=== PATIENT | female | born 2000 | race Caucasian/White ===

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

== ENCOUNTER 2021-05-03 17:01 | Emergency (ER) | payer OTHER ==
[~2021-05-03] VITALS: Ht 157.5 cm; Wt 61.2 kg
[~2021-05-03 17:01] MED LIST: BENTYL 20 MG TA20 M1 PO; MACROBID 100 M100 M2 PO; NABUMETONE 750750 M1 PO
[2021-05-03 17:13] VITALS: BP 121/81
[2021-05-03] MEDS ORDERED: PROAIR HFA8.5 GM INH (17:17)
[2021-05-03] MEDS ORDERED: TESSALON PERLE100 M1 PO (18:16)
== END 2021-05-03 18:24 | disposition home or self-care (01) ==
LOC: M.ERS 17:01
DX: J06.9 Acute upper respiratory infection, unspecified (principal); Z20.822 Contact with and (suspected) exposure to COVID-19; J45.909 Unspecified asthma, uncomplicated; Z79.899 Other long term (current) drug therapy; Z88.1 Allergy status to other antibiotic agents; Z88.6 Allergy status to analgesic agent

== ENCOUNTER 2021-08-17 13:23 | Emergency (ER) | payer OTHER ==
[~2021-08-17] VITALS: Ht 157.5 cm; Wt 57.1 kg
[~2021-08-17 13:23] MED LIST changes: +PROAIR HFA8.5 GM INH; +TESSALON PERLE100 M1 PO
[2021-08-17 15:00] LABS: ABSOLUTE EOSINOPHILS 0.2 thou/uL (0.0-0.7); ABSOLUTE LYMPHOCYTES 1.2 thou/uL (0.8-5.3); ABSOLUTE MONOCYTES 0.5 thou/uL (0.0-1.2); ABSOLUTE NEUTROPHILS 7.5 thou/uL (1.6-8.1); BASOPHILS 0.2 %; EOSINOPHILS 1.8 %; HEMATOCRIT 40.6 % (37.0-47.0); HEMOGLOBIN 13.8 gm/dL (12.0-15.0); MCH 30.6 pg (26.0-34.0); MCHC 33.9 g/dL (28.0-37.0); MCV 90.1 fL (80.0-100.0); MONOCYTES 5.4 %; MPV 8.9 fl. (7.2-11.1); NUCLEATED RBCS 0 /100WBC; PLATELET COUNT* 206 thou/uL (150-400); POLYS 79.6 %; RBC 4.51 mil/uL (4.20-5.00); RDW-CV 13.2 % (10.5-14.5); WBC 9.4 thou/uL (4.0-11.0)
[2021-08-17 15:03] LABS: URINE BILIRUBIN NEGATIVE (Negative); URINE BLOOD NEGATIVE (Negative); URINE CLARITY CLEAR; URINE COLOR YELLOW; URINE GLUCOSE-RANDOM NEGATIVE (Negative); URINE KETONES NEGATIVE (Negative); URINE LEUKOCYTES-REFLEX NEGATIVE (Negative); URINE NITRITE-REFLEX NEGATIVE (Negative); URINE PROTEIN NEGATIVE (Negative); URINE SPECIFIC GRAVITY >= 1.030 (1.005-1.030); URINE UROBILINOGEN 0.2 E.U./dl (0.2-1.0)
[2021-08-17 15:09] LABS: CALCIUM 8.5 mg/dL (8.5-10.1); CREATININE 0.6 mg/dL (0.6-1.3); POTASSIUM 3.5 mmol/L (3.5-5.1)
[2021-08-17 15:14] LABS: ALBUMIN 4.1 g/dL (3.4-5.0); TOTAL BILIRUBIN 0.6 mg/dL (<0.1-1.0); TOTAL PROTEIN 7.5 g/dL (6.4-8.2)
[2021-08-17 16:30] VITALS: BP 95/49
== END 2021-08-17 16:31 | disposition home or self-care (01) ==
LOC: M.ERS 13:23
PROVIDERS: Family Medicine
DX: R10.84 Generalized abdominal pain (principal); J45.909 Unspecified asthma, uncomplicated; Z79.899 Other long term (current) drug therapy; Z88.6 Allergy status to analgesic agent

== ENCOUNTER 2021-08-27 18:28 | Emergency (ER) | payer OTHER ==
[~2021-08-27] VITALS: Ht 157.5 cm; Wt 59.0 kg
[2021-08-27] MEDS ORDERED: MEDROLDOSEPACK PO (18:50)
[2021-08-27] MEDS ORDERED: APAP W/CODEINE1 TA2 PO (18:50)
[2021-08-27] MEDS ORDERED: AMOXICILLIN 50500 MG PO (18:50)
[2021-08-27 18:59] VITALS: BP 117/62
[2021-08-27] MEDS ORDERED: AUGMENTIN 500-1 EACH PO (19:00)
== END 2021-08-27 19:01 | disposition home or self-care (01) ==
LOC: M.ERS 18:28
DX: H66.93 Otitis media, unspecified, bilateral (principal); J45.909 Unspecified asthma, uncomplicated; Z79.899 Other long term (current) drug therapy; Z88.6 Allergy status to analgesic agent; Z88.8 Allergy status to other drugs, medicaments and biological substances